=== PATIENT | male | born 1995 | race Caucasian/White ===

== ENCOUNTER 2017-06-04 16:58 | Emergency (ER) | payer MEDICAID, SELFPAY ==
[2017-06-04] MEDS ORDERED: ATARAX 25 MG PO ONE (17:47)
[2017-06-04] MEDS ORDERED: ATARAX 25 MG ONE (17:51)
--- NOTE | 2017-06-04 18:11 | ERPHSYRPT ---
- History of Present Illness Time Seen by Provider: 06/04/17 17:41 Source: patient, family Patient Subjective Stated Complaint: PT STATES HE "JUST GOT OUT OF THE PRISON AND WHILE I WAS IN THERE THEY GAVE ME SOMEONE ELSE'S DILANTIN AND THAT SCREWED ME UP. I ACTUALLY AM SUING THE [facility] FOR THAT. I BEGAN HAVING SEIZURES 2-3 WEEKS AGO AND WENT TO [facility] AND WAS TREATED RUDE. I DID HAVE A CT SCAN THERE." PT FIANCE STATES PT STARES OFF NAD BECOMES UNRESPONSIVE. STATES PT DOES NOT HAVE CONVULSIONS. PT C/O A HEADACHE. Triage Nursing Assessment: PT PINK, WARM, DRY. PT ALERT AND ORIENTED X3. PUPILS PERRL. PT AMBULATED INTO ER WITHOUT DIFFICULTY. Physician History: CC: seizures Hx: 21 y/o healthy male patient with hx oflearning disabililty. Recently out of care home and takes cymbalta. He had a head injury. He reports seizure in the past and recently. He was seen at [facility]. He had normal CT head 05-31-17. Normal EKG reported. He plans to follow up with Dr Oscar Perez. Denies drug use or withdrawal. No fever or chills. No abd pain. He has twitching spells like cold chills. No LOC. He is concerned these are seizures. Severity: mild Allergies/Adverse Reactions: cinnamon Allergy (Verified 06/04/17 17:28) Home Medications: Duloxetine HCl [Cymbalta] 60 mg PO DAILY 06/04/17 [History] Hx Tetanus, Diphtheria Vaccination/Date Given: Yes (UP TO DATE) Hx Influenza Vaccination/Date Given: Yes Hx Pneumococcal Vaccination/Date Given: No Immunizations Up to Date: Yes - Review of Systems Constitutional: No Fever, No Chills Eyes: No Vision Changes Ears, Nose, & Throat: No Symptoms Respiratory: No Symptoms Cardiac: No Symptoms Abdominal/Gastrointestinal: No Abdominal Pain, No Nausea, No Vomiting Musculoskeletal: Injury (remote), No Back Pain, No Neck Pain Neurological: Headache, Seizure, No Dizziness, No Focal Weakness, No Parasthesia All Other Systems: Reviewed and Negative - Past Medical History Pertinent Past Medical History: Yes Neurological History: Other ENT History: No Pertinent History Cardiac History: No Pertinent History Respiratory History: Asthma Endocrine Medical History: No Pertinent History Musculoskeletal History: No Pertinent History GI Medical History: Ulcer History: No Pertinent History Psycho-Social History: Depression Male Reproductive Disorders: No Pertinent History Other Medical History: HEAD INJURY - Past Surgical History Past Surgical History: Yes Neuro Surgical History: No Pertinent History Cardiac: No Pertinent History Respiratory: No Pertinent History Gastrointestinal: No Pertinent History Genitourinary: No Pertinent History Musculoskeletal: Orthopedic Surgery Male Surgical History: No Pertinent History Other Surgical History: SURGERY TO HEAD - Social History Smoking Status: Former smoker Exposure to second hand smoke: No Drug Use: none Patient Lives Alone: No - Nursing Vital Signs Nursing Vital Signs: Initial Vital Signs Temperature 98.3 F 06/04/17 17:20 Pulse Rate 95 H 06/04/17 17:20 Respiratory Rate 18 06/04/17 17:20 Blood Pressure 120/72 06/04/17 17:20 O2 Sat by Pulse Oximetry 96 06/04/17 17:20 Pain Scale Pain Intensity 10 - Physical Exam General Appearance: alert Eye Exam: PERRL/EOMI Ears, Nose, Throat Exam: normal ENT inspection, moist mucous membranes Neck Exam: normal inspection, non-tender, supple Respiratory Exam: normal breath sounds, lungs clear Cardiovascular Exam: regular rate/rhythm Gastrointestinal/Abdomen Exam: soft, No tenderness, No distention Male Genitalia Exam: normal genitalia Back Exam: normal inspection, normal range of motion Extremity Exam: normal inspection, normal range of motion Neurologic Exam: alert, oriented x 3, cooperative, sensation nml, No motor deficits Skin Exam: warm, dry SpO2: 95 Oxygen Delivery: Room Air Comments: 06/04/17 18:11 trouble with math facts but good spelling, oriented, appropriate insight. - Course Nursing assessment & vital signs reviewed: Yes Ordered Tests: Active Orders 24 hr Category Date Time Status Clean Catch Urine Specimen STAT Care 06/04/17 17:47 Active CBC W DIFF Stat Lab 06/04/17 18:24 Completed CMP Stat Lab 06/04/17 18:24 Completed Manual Differential NC Stat Lab 06/04/17 18:24 Completed UA W/RFX UR CULTURE Stat Lab 06/04/17 18:05 Completed Urine Triage Profile Stat Lab 06/04/17 18:05 Completed Medication Summary Discontinued Medications Generic Name Dose Route Start Last Admin Trade Name Freq PRN Reason Stop Dose Admin Hydroxyzine HCl 50 mg 06/04/17 17:47 06/04/17 17:53 Atarax 25 Mg PO 06/04/17 17:48 50 mg STAT ONE Administration Hydroxyzine HCl Confirm 06/04/17 17:51 Atarax 25 Mg Administered 06/04/17 17:52 Dose 50 mg .ROUTE .STK-MED ONE Lab/Rad Data: Laboratory Result Diagrams 06/04/17 18:24 06/04/17 18:24 Laboratory Results 06/04/17 06/04/17 06/04/17 Range/Units 18:24 18:24 18:05 WBC 8.6 (4.0-10.5) K/mm3 RBC 5.37 (4.1-5.6) M/mm3 Hgb 17.2 (12.5-18.0) gm/dl Hct 49.7 (42-50) % MCV 92.6 (78-100) fl MCH 32.0 (26-32) pg MCHC 34.6 (32-36) g/dl RDW 12.4 (11.5-14.0) % Plt Count 177 (150-450) K/mm3 MPV 10.9 H (6-9.5) fl Sodium 140 (136-145) mEq/L Potassium 4.4 (3.5-5.1) mEq/L Chloride 104 (98-107) mEq/L Carbon Dioxide 27.1 (21-32) mEq/L Anion Gap 13.5 (5-15) MEQ/L BUN 13 (9-20) mg/dL Creatinine 0.90 (0.55-1.30) mg/dl Estimated GFR > 60 ML/MIN Glucose 92 (70-110) MG/DL Calcium 9.5 (8.5-10.1) mg/dL Total Bilirubin 0.40 (0.2-1.0) mg/dL AST 25 (15-37) U/L ALT 51 (12-78) U/L Alkaline Phosphatase 90 (46-116) U/L Serum Total Protein 7.5 (6.4-8.2) gm/dL Albumin 4.3 (3.4-5.0) g/dL Ur Collection Type VOID Urine Color YELLOW (YELLOW) Urine Appearance CLEAR (CLEAR) Urine pH 6.0 (5-6) Ur Specific [place] 1.010 (1.005-1.025) Urine Protein NEGATIVE (Negative) Urine Ketones NEGATIVE (NEGATIVE) Urine Blood NEGATIVE (0-5) Justin/ul Urine Nitrite NEGATIVE (NEGATIVE) Urine Bilirubin NEGATIVE (NEGATIVE) Urine Urobilinogen NORMAL (0-1) mg/dL Ur Leukocyte Esterase NEGATIVE (NEGATIVE) Urine Glucose NEGATIVE (NEGATIVE) mg/dL Urine Opiates Level (NEGATIVE) Ur Methadone (NEGATIVE) Urine Barbiturates (NEGATIVE) Ur Phencyclidine (PCP) (NEGATIVE) Urine Amphetamine (NEGATIVE) U Benzodiazepine Level (NEGATIVE) Urine Cocaine (NEGATIVE) Urine Marijuana (THC) (NEGATIVE) Specimen Received 06/04/17 1800 06/04/17 Range/Units 18:05 WBC (4.0-10.5) K/mm3 RBC (4.1-5.6) M/mm3 Hgb (12.5-18.0) gm/dl Hct (42-50) % MCV (78-100) fl MCH (26-32) pg MCHC (32-36) g/dl RDW (11.5-14.0) % Plt Count (150-450) K/mm3 MPV (6-9.5) fl Sodium (136-145) mEq/L Potassium (3.5-5.1) mEq/L Chloride (98-107) mEq/L Carbon Dioxide (21-32) mEq/L Anion Gap (5-15) MEQ/L BUN (9-20) mg/dL Creatinine (0.55-1.30) mg/dl Estimated GFR ML/MIN Glucose (70-110) MG/DL Calcium (8.5-10.1) mg/dL Total Bilirubin (0.2-1.0) mg/dL AST (15-37) U/L ALT (12-78) U/L Alkaline Phosphatase (46-116) U/L Serum Total Protein (6.4-8.2) gm/dL Albumin (3.4-5.0) g/dL Ur Collection Type Urine Color (YELLOW) Urine Appearance (CLEAR) Urine pH (5-6) Ur Specific [place] (1.005-1.025) Urine Protein (Negative) Urine Ketones (NEGATIVE) Urine Blood (0-5) Justin/ul Urine Nitrite (NEGATIVE) Urine Bilirubin (NEGATIVE) Urine Urobilinogen (0-1) mg/dL Ur Leukocyte Esterase (NEGATIVE) Urine Glucose (NEGATIVE) mg/dL Urine Opiates Level NEG. (NEGATIVE) Ur Methadone NEG. (NEGATIVE) Urine Barbiturates NEG. (NEGATIVE) Ur Phencyclidine (PCP) NEG. (NEGATIVE) Urine Amphetamine NEG. (NEGATIVE) U Benzodiazepine Level NEG. (NEGATIVE) Urine Cocaine NEG. (NEGATIVE) Urine Marijuana (THC) NEG. (NEGATIVE) Specimen Received - Progress Progress Note: 06/04/17 18:11 He has never been treated for seizures. He is unsure if had EEG in the past. 06/04/17 18:56 Reviewed labs and prior CT with pt. Advised no driving, climbing, swimming. He needs to follow up with family doctor to arrange EEG and further testing. 06/04/17 19:27 He has some headaches. Advised EEG. He will follow up with family practice to arrange. Counseled pt/family regarding: lab results, diagnosis, need for follow-up - Departure Time of Disposition: 19:27 Departure Disposition: Home Clinical Impression: Tremors of nervous system Condition: Stable Critical Care Time: No Referrals: RON PEREZ [Family Provider] - Instructions: Seizure (Not Epilepsy/Seizure Disorder) Additional Instructions: No driving, climbing, swimming, hot tubs. Call tomorrow to see family doctor to arrange EEG. Ibuprofen as directed for headaches. Return for fever or concerns.
[2017-06-04 18:22] LABS: ADD URINE CULTURE? NO (NO); Bilirubin NEGATIVE (NEGATIVE); Blood NEGATIVE Ery/ul (0-5); COMPLETE URINE MICROSCOPIC? NO; Collection Type VOID; Glucose NEGATIVE (NEGATIVE); Leukocyte Esterase NEGATIVE (NEGATIVE)
[2017-06-04 18:46] LABS: Mean Cell Volume 92.6 fl (78-100); Mean Platelet Volume 10.9 fl (6-9.5); Platelet Count 177 K/mm3 (150-450); Red Blood Count 5.37 M/mm3 (4.1-5.6); Red Cell Distribution Width 12.4 % (11.5-14.0); White Blood Count 8.6 K/mm3 (4.0-10.5)
[2017-06-04 18:55] LABS: ALBUMIN 4.3 g/dL (3.4-5.0); ALKALINE PHOSPHATASE 90 U/L (46-116); ANION GAP 13.5 MEQ/L (5-15); BLOOD UREA NITROGEN 13 mg/dL (9-20); CHLORIDE 104 mEq/L (98-107); Carbon Dioxide 27.1 mEq/L (21-32); Glucose 92 MG/DL (70-110); Potassium 4.4 mEq/L (3.5-5.1); SGOT/AST 25 U/L (15-37); SGPT/ALT 51 U/L (12-78); SODIUM 140 mEq/L (136-145); Total Protein 7.5 gm/dL (6.4-8.2)
[2017-06-04 19:36] VITALS: BP 117/60; PULSE 73; O2SAT 100
[2017-06-04 19:52] LABS: BAND 1 % (0.0-2.0); Eosinophil 2 % (0.00-3.0); Platelet Estimate NORMAL (NORMAL); Total Cells Counted 100
== END 2017-06-04 19:36 | disposition home or self-care (01) ==
LOC: ED 16:58
DX: G25.2 Other specified forms of tremor (principal); R51 Headache
CPT/HCPCS: 36415; 80053; 80307; 81002; 85025; 99284; A9270-GY

== ENCOUNTER 2018-08-12 20:22 | Emergency (ER) | payer MEDICAID, OTHER ==
--- NOTE | 2018-08-12 21:09 | ERPHSYRPT ---
- History of Present Illness Time Seen by Provider: 08/12/18 20:45 Historian: patient, family Exam Limitations: no limitations Patient Subjective Stated Complaint: pt states he has been having chest pain since yesterday. descibes pain as sharp and 8/10. states he has been having a lot of stress recently Triage Nursing Assessment: pt alert and oriented, answers questions approp. pt ambulatory with steady gait noted. respriations nonlabored with lungs cta. skin pink warm and dry. Physician History: 22 y/o white male presents with greater than one day central substernal, sharp cp with radiation into left neck. pt also has a family h/o blot clots. mild soa. never had anything like this before. pt states his hands were purple and numb earlier. pt states he has an anxiety d/o and is under a lot of stress. Timing/Duration: day(s) (1) Activities at Onset: none Quality: sharpness, stabbing Location: substernal, other (left of midline) Chest Pain Radiation: jaw (left) Severity of Pain-Max: mild Severity of Pain-Current: mild Modifying Factors: Improves With: nothing Associated Symptoms: nausea, vomiting, No palpitations, No heartburn, No abdominal pain, No shortness of breath, No cough, No diaphoresis, No chills, No fever, No fatigue, No weakness, No swelling/lump in chest, No syncope, No rash, No dizziness, No edema, No back pain Nitro Today/Relief: no nitro taken today Aspirin Treatment Today: no aspirin today Allergies/Adverse Reactions: cinnamon Allergy (Verified 08/12/18 20:32) Home Medications: Duloxetine HCl [Cymbalta] 60 mg PO DAILY 06/04/17 [History] Hx Tetanus, Diphtheria Vaccination/Date Given: Yes (UP TO DATE) Hx Influenza Vaccination/Date Given: No Hx Pneumococcal Vaccination/Date Given: No Immunizations Up to Date: Yes - Review of Systems Constitutional: No Symptoms, No Fever Eyes: No Symptoms Ears, Nose, & Throat: No Symptoms Respiratory: No Symptoms Cardiac: Chest Pain, No Palpitations, No Syncope Abdominal/Gastrointestinal: No Symptoms, No Abdominal Pain, No Nausea, No Vomiting, No Diarrhea Genitourinary Symptoms: No Symptoms, No Dysuria, No Frequency, No Hematuria Musculoskeletal: No Symptoms, No Back Pain, No Neck Pain, No Deformity, No Fall Skin: No Symptoms Neurological: No Symptoms Psychological: Anxiety Endocrine: No Symptoms Hematologic/Lymphatic: No Symptoms Immunological/Allergic: No Symptoms All Other Systems: Reviewed and Negative - Past Medical History Pertinent Past Medical History: Yes Neurological History: Other ENT History: No Pertinent History Cardiac History: No Pertinent History Respiratory History: Asthma Endocrine Medical History: No Pertinent History Musculoskeletal History: No Pertinent History GI Medical History: Ulcer History: No Pertinent History Psycho-Social History: Depression Male Reproductive Disorders: No Pertinent History Other Medical History: HEAD INJURY - Past Surgical History Past Surgical History: Yes Neuro Surgical History: No Pertinent History Cardiac: No Pertinent History Respiratory: No Pertinent History Gastrointestinal: No Pertinent History Genitourinary: No Pertinent History Musculoskeletal: Orthopedic Surgery Male Surgical History: No Pertinent History Other Surgical History: SURGERY TO HEAD - Social History Smoking Status: Former smoker Exposure to second hand smoke: No Drug Use: none Patient Lives Alone: No - Nursing Vital Signs Nursing Vital Signs: Initial Vital Signs Temperature 99.3 F 08/12/18 20:24 Pulse Rate 100 H 08/12/18 20:24 Respiratory Rate 20 08/12/18 20:24 Blood Pressure 143/105 08/12/18 20:24 O2 Sat by Pulse Oximetry 97 08/12/18 20:24 Pain Scale Pain Intensity 5 - Physical Exam General Appearance: no apparent distress, alert, anxiety Eye Exam: PERRL/EOMI Ears, Nose, Throat Exam: normal ENT inspection, moist mucous membranes Neck Exam: normal inspection, non-tender, supple, full range of motion Respiratory Exam: normal breath sounds, chest tenderness (mild), lungs clear, airway intact, No respiratory distress, No accessory muscle use, No rhonchi, No wheezing, No stridor Cardiovascular Exam: regular rate/rhythm, normal heart sounds, normal peripheral pulses Gastrointestinal/Abdomen Exam: soft, normal bowel sounds, No tenderness, No guarding, No rebound Rectal Exam: not done Back Exam: normal inspection, normal range of motion, CVA tenderness Extremity Exam: normal inspection, normal range of motion, pelvis stable Neurologic Exam: alert, oriented x 3, cooperative, neurosurgical nurse II-XII nml as tested Skin Exam: normal color, warm, dry Lymphatic Exam: No adenopathy SpO2 Interpretation: normal SpO2: 97 Oxygen Delivery: Room Air - Course EKG Interpreted by Me: RATE (100), Sinus Rhythm, NORMAL AXIS, NORMAL INTERVALS, NORMAL QRS, NORMAL ST-T Ordered Tests: Active Orders 24 hr Category Date Time Status Child Care Provider STAT Care 08/12/18 21:13 Active EKG-ER Only STAT Care 08/12/18 21:12 Active IV Insertion STAT Care 08/12/18 21:12 Active CHEST 1 VIEW (PORTABLE) Stat Exams 08/12/18 21:12 Taken CBC W DIFF Stat Lab 08/12/18 21:19 Completed CMP Stat Lab 08/12/18 20:35 Completed D-DIMER QUANTITATION Stat Lab 08/12/18 21:19 Completed TROPONIN Q3H Lab 08/12/18 21:19 Completed TROPONIN Q3H Lab 08/13/18 00:15 Ordered TROPONIN Q3H Lab 08/13/18 03:15 Ordered TROPONIN Q3H Lab 08/13/18 06:15 Ordered TROPONIN Q3H Lab 08/13/18 09:15 Ordered Medication Summary Discontinued Medications Generic Name Dose Route Start Last Admin Trade Name Freq PRN Reason Stop Dose Admin Aspirin 324 mg 08/12/18 21:12 08/12/18 21:27 Baby Aspirin 81 Mg Chew PO 08/12/18 21:13 324 mg STAT ONE Administration Aspirin Confirm 08/12/18 21:22 Baby Aspirin 81 Mg Chew Administered 08/12/18 21:23 Dose 324 mg .ROUTE .STK-MED ONE Sodium Chloride 1,000 mls @ 999 mls/hr 08/12/18 21:12 08/12/18 21:27 Sodium Chloride 0.9% 1000 Ml IV 08/12/18 22:12 999 mls/hr .Q1H1M STA Administration Sodium Chloride Confirm 08/12/18 21:22 Sodium Chloride 0.9% 1000 Ml Administered 08/12/18 21:23 Dose 1,000 mls @ ud .ROUTE .STK-MED ONE Ondansetron HCl 4 mg 08/12/18 21:12 08/12/18 21:27 Zofran 4 Mg/2 Ml Vial IV 08/12/18 21:13 4 mg STAT ONE Administration Ondansetron HCl Confirm 08/12/18 21:21 Zofran 4 Mg/2 Ml Vial Administered 08/12/18 21:22 Dose 4 mg .ROUTE .STK-MED ONE Lab/Rad Data: Laboratory Result Diagrams 08/12/18 21:19 08/12/18 20:35 Laboratory Results 08/12/18 08/12/18 08/12/18 Range/Units 21:19 21:19 21:19 WBC 10.7 H (4.0-10.5) K/mm3 RBC 5.27 (4.1-5.6) M/mm3 Hgb 16.8 (12.5-18.0) gm/dl Hct 47.8 (42-50) % MCV 90.7 (78-100) fl MCH 31.9 (26-32) pg MCHC 35.1 (32-36) g/dl RDW 12.4 (11.5-14.0) % Plt Count 163 (150-450) K/mm3 MPV 11.4 H (6-9.5) fl Gran % 75.3 H (36.0-66.0) % Eos # (Auto) 0.15 (0-0.5) Absolute Lymphs (auto) 1.64 (1.0-4.6) Absolute Monos (auto) 0.82 (0.0-1.3) Lymphocytes % 15.4 L (24.0-44.0) % Monocytes % 7.7 (0.0-12.0) % Eosinophils % 1.4 (0.00-5.0) % Basophils % 0.2 (0.0-0.4) % Absolute Granulocytes 8.02 H (1.4-6.9) Basophils # 0.02 (0-0.4) D-Dimer < 215 L (215-500) ng/mL Sodium (137-145) mmol/L Potassium (3.5-5.1) mmol/L Chloride (98-107) mmol/L Carbon Dioxide (22-30) mmol/L Anion Gap (5-15) MEQ/L BUN (9-20) mg/dL Creatinine (0.66-1.25) mg/dL Estimated GFR ML/MIN Glucose (74-106) mg/dL Calcium (8.4-10.2) mg/dL Total Bilirubin (0.2-1.3) mg/dL AST (17-59) U/L ALT (0-50) U/L Alkaline Phosphatase (38-126) U/L Troponin I < 0.012 (0.000-0.034) ng/mL Serum Total Protein (6.3-8.2) g/dL Albumin (3.5-5.0) g/dL 08/12/18 Range/Units 20:35 WBC (4.0-10.5) K/mm3 RBC (4.1-5.6) M/mm3 Hgb (12.5-18.0) gm/dl Hct (42-50) % MCV (78-100) fl MCH (26-32) pg MCHC (32-36) g/dl RDW (11.5-14.0) % Plt Count (150-450) K/mm3 MPV (6-9.5) fl Gran % (36.0-66.0) % Eos # (Auto) (0-0.5) Absolute Lymphs (auto) (1.0-4.6) Absolute Monos (auto) (0.0-1.3) Lymphocytes % (24.0-44.0) % Monocytes % (0.0-12.0) % Eosinophils % (0.00-5.0) % Basophils % (0.0-0.4) % Absolute Granulocytes (1.4-6.9) Basophils # (0-0.4) D-Dimer (215-500) ng/mL Sodium 143 (137-145) mmol/L Potassium 3.8 (3.5-5.1) mmol/L Chloride 105 (98-107) mmol/L Carbon Dioxide 25 (22-30) mmol/L Anion Gap 16.5 H (5-15) MEQ/L BUN 19 (9-20) mg/dL Creatinine 1.38 H (0.66-1.25) mg/dL Estimated GFR > 60.0 ML/MIN Glucose 106 (74-106) mg/dL Calcium 10.9 H (8.4-10.2) mg/dL Total Bilirubin 0.80 (0.2-1.3) mg/dL AST 22 (17-59) U/L ALT 22 (0-50) U/L Alkaline Phosphatase 87 (38-126) U/L Troponin I (0.000-0.034) ng/mL Serum Total Protein 7.2 (6.3-8.2) g/dL Albumin 4.7 (3.5-5.0) g/dL - Progress Progress: unchanged Air Movement: good Blood Culture(s) Obtained: No Antibiotics given: No Counseled pt/family regarding: lab results, diagnosis, need for follow-up, rad results - Departure Time of Disposition: 22:22 Departure Disposition: Home Clinical Impression: Chest pain, Stress Condition: Stable Critical Care Time: No Referrals: RON PEREZ [Primary Care Provider] - Additional Instructions: follow up with primary doctor for further management.
[2018-08-12] MEDS ORDERED: Sodium Chloride 0.9% 1000 ML 1,000 ML IV STA (21:12)
[2018-08-12] MEDS ORDERED: Zofran 4 MG/2 ML VIAL IV ONE (21:12)
[2018-08-12] MEDS ORDERED: BABY ASPIRIN 81 MG CHEW PO ONE (21:12)
[2018-08-12] MEDS ORDERED: Zofran 4 MG/2 ML VIAL ONE (21:21)
[2018-08-12] MEDS ORDERED: BABY ASPIRIN 81 MG CHEW ONE (21:22)
[2018-08-12] MEDS ORDERED: Sodium Chloride 0.9% 1000 ML 1,000 ML ONE (21:22)
[2018-08-12 21:27] LABS: BASOPHIL % 0.2 % (0.0-0.4); Basophil (Absolute #) 0.02 (0-0.4); Eosinophil % 1.4 % (0.00-5.0); Eosinophil (Absolute #) 0.15 (0-0.5); Granulocyte Absolute (ANC) 8.02 (1.4-6.9); Granulocytes % 75.3 % (36.0-66.0); Hematocrit 47.8 % (42-50); Hemoglobin 16.8 gm/dl (12.5-18.0); Lymphocyte (Absolute #) 1.64 (1.0-4.6); Lymphocytes % 15.4 % (24.0-44.0); Mean Cell Volume 90.7 fl (78-100); Mean Corpuscular Hemoglobin 31.9 pg (26-32); Mean Corpuscular Hgb Concent. 35.1 g/dl (32-36); Mean Platelet Volume 11.4 fl (6-9.5); Monocyte (Absolute #) 0.82 (0.0-1.3); Monocytes % 7.7 % (0.0-12.0); Platelet Count 163 K/mm3 (150-450); Red Blood Count 5.27 M/mm3 (4.1-5.6); Red Cell Distribution Width 12.4 % (11.5-14.0); White Blood Count 10.7 K/mm3 (4.0-10.5)
[2018-08-12 21:33] LABS: ALBUMIN 4.7 g/dL (3.5-5.0); ALKALINE PHOSPHATASE 87 U/L (38-126); ANION GAP 16.5 MEQ/L (5-15); BLOOD UREA NITROGEN 19 mg/dL (9-20); CHLORIDE 105 mmol/L (98-107); Calcium 10.9 mg/dL (8.4-10.2); Carbon Dioxide 25 mmol/L (22-30); Creatinine 1 1.38 mg/dL (0.66-1.25); Glucose 106 mg/dL (74-106); Potassium 3.8 mmol/L (3.5-5.1); SGOT/AST 22 U/L (17-59); SGPT/ALT 22 U/L (0-50); SODIUM 143 mmol/L (137-145); Total Protein 7.2 g/dL (6.3-8.2)
[2018-08-12 22:25] VITALS: BP 138/85; PULSE 87; O2SAT 98
--- NOTE | 2018-08-13 08:49 | XRAY ---
Indication: Chest pain. Comparison: July 13, 2015. Portable chest again demonstrates normal heart, lungs, and bony thorax.
== END 2018-08-12 22:40 | disposition home or self-care (01) ==
LOC: ED 20:22
DX: R07.89 Other chest pain (principal); F43.9 Reaction to severe stress, unspecified; F41.9 Anxiety disorder, unspecified; R11.2 Nausea with vomiting, unspecified
CPT/HCPCS: 36000; 36415; 71045; 80053; 84484; 85025; 85379; 93005; 93041; 96360; 96374; 99284; J2405; A9270-GY

== ENCOUNTER 2022-05-08 22:24 | Emergency (ER) | payer OTHER ==
--- NOTE | 2022-05-08 22:37 | ERPHSYRPT ---
- History of Present Illness Time Seen by Provider: 05/08/22 22:36 Historian: patient Exam Limitations: no limitations Physician History: This is a 26-year-old white male who has epigastric burning sensation and has had this for period of time. He has an appointment to see his outpatient physician in 2 days. Because of the symptoms that he has, he has been on Pepcid and sucralfate. Patient usually eats spicy greasy fatty foods. He also chews tobacco. This evening, he "spit up blood". It was a small amount. However, it was more than another time that he had had spitting up of blood. Patient has no chest pain. He is not short of breath. Patient is not on any blood thinning medication. He arrives to the emergency department with stable vital signs. He has never seen a crap shooter. He has never had an upper endoscopy performed in the past he has no bleeding or clotting disorders. Timing/Duration: today Activities at Onset: none Quality: burning Abdominal Pain Onset Location: epigastric (Mild) Pain Radiation: no radiation Severity of Pain-Max: mild Severity of Pain-Current: none Modifying Factors: Improves With: nothing Associated Symptoms: denies symptoms Previous symptoms: no prior history Allergies/Adverse Reactions: peanut Allergy (Verified 05/08/22 22:32) Swelling Home Medications: Famotidine 20 mg [Pepcid 20 MG] 20 mg PO BID 05/08/22 [History] Sucralfate 1 gm [Carafate 1 GM] 1 g PO TID 05/08/22 [History] Hx Tetanus, Diphtheria Vaccination/Date Given: Yes (UP TO DATE) Hx Influenza Vaccination/Date Given: No Hx Pneumococcal Vaccination/Date Given: No Travel Risk - International Travel Have you traveled outside of the country in past 3 weeks: No - Coronavirus Screening Are you exhibiting any of the following symptoms?: No Close contact with a COVID-19 positive Pt in past 14-21 Days: No - Review of Systems Constitutional: No Symptoms Eyes: No Symptoms Ears, Nose, & Throat: No Symptoms Respiratory: No Symptoms Cardiac: No Symptoms Abdominal/Gastrointestinal: Hematemesis ("Spit up" small amount) Genitourinary Symptoms: No Symptoms Musculoskeletal: No Symptoms Skin: No Symptoms Neurological: No Symptoms Psychological: No Symptoms Endocrine: No Symptoms Hematologic/Lymphatic: No Symptoms Immunological/Allergic: No Symptoms All Other Systems: Reviewed and Negative - Past Medical History Pertinent Past Medical History: Yes Neurological History: Other ENT History: No Pertinent History Cardiac History: No Pertinent History Respiratory History: Asthma Endocrine Medical History: No Pertinent History Musculoskeletal History: No Pertinent History GI Medical History: Ulcer History: No Pertinent History Psycho-Social History: Depression Male Reproductive Disorders: No Pertinent History Other Medical History: HEAD INJURY - Past Surgical History Past Surgical History: Yes Neuro Surgical History: No Pertinent History Cardiac: No Pertinent History Respiratory: No Pertinent History Gastrointestinal: No Pertinent History Genitourinary: No Pertinent History Musculoskeletal: Orthopedic Surgery Male Surgical History: No Pertinent History Other Surgical History: SURGERY TO HEAD - Social History Smoking Status: Former smoker Exposure to second hand smoke: No Drug Use: none Patient Lives Alone: No - Nursing Vital Signs Nursing Vital Signs: Initial Vital Signs Temperature 97.8 F 05/08/22 22:33 Pulse Rate 88 05/08/22 22:33 Respiratory Rate 18 05/08/22 22:33 Blood Pressure 133/98 05/08/22 22:33 O2 Sat by Pulse Oximetry 99 05/08/22 22:33 Pain Scale Pain Intensity 4 - Physical Exam General Appearance: no apparent distress, alert, anxiety Eye Exam: PERRL/EOMI, eyes nml inspection Ears, Nose, Throat Exam: normal ENT inspection, moist mucous membranes Neck Exam: normal inspection, non-tender, supple, full range of motion Respiratory Exam: normal breath sounds, respiratory distress, airway intact, No chest tenderness, No lungs clear Cardiovascular Exam: regular rate/rhythm, normal heart sounds, normal peripheral pulses Gastrointestinal/Abdomen Exam: soft, normal bowel sounds, No tenderness Rectal Exam: not done Back Exam: normal inspection, normal range of motion, No CVA tenderness, No vertebral tenderness Extremity Exam: normal inspection, normal range of motion, pelvis stable Neurologic Exam: alert, oriented x 3, cooperative, revival clerk II-XII nml as tested, normal mood/affect, nml cerebellar function, nml station & gait, sensation nml Skin Exam: normal color, warm, dry Lymphatic Exam: No adenopathy SpO2 Interpretation: normal O2 Delivery: Room Air - Course Nursing assessment & vital signs reviewed: Yes Ordered Tests: Active Orders 24 hr Category Date Time Status CBC W DIFF Stat Lab 05/08/22 23:32 Completed Medication Summary Discontinued Medications Generic Name Dose Route Start Last Admin Trade Name Nicola PRN Reason Stop Dose Admin Al Hydrox/Mg Hydrox/Simethicone Confirm 05/08/22 23:07 Mag Hydrox/Al Hydrox/Simeth 30 Ml Udcup Administered 05/08/22 23:08 Dose 30 ml .ROUTE .STK-MED ONE Lidocaine HCl Confirm 05/08/22 23:07 Lidocaine Hcl 2% Viscous 15 Ml Udcup Administered 05/08/22 23:08 Dose 15 ml .ROUTE .STK-MED ONE Magnesium Hydroxide 45 ml 05/08/22 23:03 05/08/22 23:09 Mag Hydrx/Alum Hyd/Simeth/Lido 45 Ml Bottle PO 05/08/22 23:04 45 ml STAT ONE Administration Lab/Rad Data: Laboratory Result Diagrams 05/08/22 23:32 Laboratory Results 05/08/22 Range/Units 23:32 WBC 5.3 (4.0-10.5) x10^3/uL RBC 4.89 (4.1-5.6) x10^6/uL Hgb 15.7 (12.5-18.0) g/dL Hct 46.4 (42-50) % MCV 94.9 (78-100) fL MCH 32.1 H (26-32) pg MCHC 33.8 (32-36) g/dL RDW 11.5 (11.5-14.0) % Plt Count 146 L (150-450) x10^3/uL MPV 9.7 (7.5-11.0) fL Gran % 62.1 (36.0-66.0) % Immature Gran % (Auto) 0.4 (0.00-0.4) % Nucleat RBC Rel Count 0.0 (0.00-0.1) % Eos # (Auto) 0.09 (0-0.5) x10^3/uL Immature Gran # (Auto) 0.02 (0.00-0.03) x10^3u/L Absolute Lymphs (auto) 1.15 (1.0-4.6) x10^3/uL Absolute Monos (auto) 0.71 (0.0-1.3) x10^3/uL Absolute Nucleated RBC 0.00 (0.00-0.01) x10^3u/L Lymphocytes % 21.9 L (24.0-44.0) % Monocytes % 13.5 H (0.0-12.0) % Eosinophils % 1.7 (0.00-5.0) % Basophils % 0.4 (0.0-0.4) % Absolute Granulocytes 3.26 (1.4-6.9) x10^3/uL Basophils # 0.02 (0-0.4) x10^3/uL - Progress Progress: unchanged Counseled pt/family regarding: lab results, need for follow-up - Departure Departure Disposition: Home Clinical Impression: Hematemesis Condition: Stable Critical Care Time: No Referrals: DOCTOR,NO FAMILY [Primary Care Provider] - Follow up/PCP as directed Additional Instructions: Drink plenty of fluids. Avoid fatty greasy spicy foods. Avoid alcohol. Avoid nicotine. Avoid caffeine products. Take your medication as prescribed. Keep your appointment at your primary care provider's office on 05/10/2022. Return to the emergency department if symptoms worsen.
[2022-05-08] MEDS ORDERED: XYLOCAINE VISCOUS 2% 15 ML CUP ONE (23:07)
[2022-05-08] MEDS ORDERED: MAALOX ES 30 ML UNIT DOSE ONE (23:07)
[2022-05-08] MEDS: GI COCKTAIL 45 ML (Maalox/Lidocaine) PO ONE (23:09)
[2022-05-08 23:34] LABS: Absolute Neutrophil Ct (ANC) 3.26 x10^3/uL (1.4-6.9); Basophil (Absolute #) 0.02 x10^3/uL (0-0.4); Eosinophil % 1.7 % (0.00-5.0); Eosinophil (Absolute #) 0.09 x10^3/uL (0-0.5); Hematocrit 46.4 % (42-50); Hemoglobin 15.7 g/dL (12.5-18.0); Lymphocyte (Absolute #) 1.15 x10^3/uL (1.0-4.6); Lymphocytes % 21.9 % (24.0-44.0); Mean Cell Volume 94.9 fL (78-100); Mean Corpuscular Hemoglobin 32.1 pg (26-32); Mean Corpuscular Hgb Concent. 33.8 g/dL (32-36); Mean Platelet Volume 9.7 fL (7.5-11.0); Monocyte (Absolute #) 0.71 x10^3/uL (0.0-1.3); Monocytes % 13.5 % (0.0-12.0); Neutrophil % 62.1 % (36.0-66.0); Platelet Count 146 x10^3/uL (150-450); Red Blood Count 4.89 x10^6/uL (4.1-5.6); Red Cell Distribution Width 11.5 % (11.5-14.0); White Blood Count 5.3 x10^3/uL (4.0-10.5)
[2022-05-09 00:06] VITALS: BP 122/78; PULSE 95; O2SAT 98
== END 2022-05-09 00:06 | disposition home or self-care (01) ==
LOC: ED 22:24
DX: K92.0 Hematemesis (principal); R10.13 Epigastric pain
CPT/HCPCS: 36415; 85025; 99282; A9270-GY